=== PATIENT | female | born 2000 | race Caucasian/White ===

== ENCOUNTER 2024-12-08 08:14 | Emergency (ER) | payer BC ==
[2024-12-08 08:23] VITALS: TEMP 97.2
[2024-12-08] MEDS ORDERED: DUONEB 0.5-3 MG/3 ml Neb IH ONE (09:12)
[2024-12-08] MEDS: DUONEB 0.5-3 MG/3 ml Neb IH ONE (09:19)
[2024-12-08 09:30] LABS: Absolute Neutrophil Ct (ANC) 4.01 x10^3/uL (1.56-6.13); BASOPHIL % 0.4 % (0.1-1.2); Basophil (Absolute #) 0.02 x10^3/uL (0.01-0.08); Eosinophil % 2.7 % (0.7-5.8); Eosinophil (Absolute #) 0.15 x10^3/uL (0.04-0.36); Hematocrit 38.5 % (34.1-44.9); Hemoglobin 13.4 g/dL (11.2-15.7); IMMATURE GRAN # 0.01 x10^3u/L (0.001-0.031); IMMATURE GRAN % 0.2 % (0.001-0.429); Lymphocyte (Absolute #) 0.87 x10^3/uL (1.18-3.74); Lymphocytes % 15.6 % (19.3-51.7); Mean Corpuscular Hemoglobin 31.3 pg (25.6-32.2); Mean Corpuscular Hgb Concent. 34.8 g/dL (32.2-35.5); Mean Platelet Volume 9.9 fL (9.4-12.3); Monocyte (Absolute #) 0.51 x10^3/uL (0.24-0.86); Monocytes % 9.2 % (4.7-12.5); Neutrophil % 71.9 % (34.0-71.1); Platelet Count 208 x10^3/uL (182-369); Red Blood Count 4.28 x10^6/uL (3.93-5.22); Red Cell Distribution Width 11.6 % (11.7-14.4); White Blood Count 5.6 x10^3/uL (3.98-10.04)
[2024-12-08 09:48] LABS: HCG SERUM TEST NEGATIVE (NEGATIVE)
[2024-12-08 09:51] LABS: ALBUMIN 4.1 g/dL (3.5-5.0); ANION GAP 10.5 MEQ/L (5-15); BILIRUBIN,TOTAL 0.4 mg/dL (0.2-1.3); Creatinine 1 0.69 mg/dL (0.52-1.04); EST GLOMERULAR FILTRATION RATE 124.2 ML/MIN; Total Protein 6.6 g/dL (6.3-8.2)
[2024-12-08 11:08] VITALS: RESP 17; O2SAT 99
--- NOTE | 2024-12-08 11:51 | XRAY ---
Indication: Elevated d-dimer. Multiple contiguous axial images obtained through the chest using 80 cc Isovue 370 contrast and PE protocol. Comparison: None Good opacification pulmonary arteries to include the lobar and segmental branches. No pulmonary embolus. Heart not enlarged. Aorta is normal in course and caliber. No pathologic mediastinal/hilar lymphadenopathy. Lungs demonstrates medial right middle lobe atelectasis and minimal left lung base dependent atelectasis. Remaining lungs inflated and clear. Bony thorax intact. Limited upper abdomen including adrenal glands are unremarkable. Impression: Negative pulmonary embolus. Right middle lobe segmental atelectasis. No acute cardiopulmonary abnormalities.
[2024-12-08 12:06] VITALS: BP 120/74; PULSE 93
--- NOTE | 2024-12-08 12:06 | ERPHSYRPT ---
- History of Present Illness Time Seen by Provider: 12/08/24 08:29 Source: patient Exam Limitations: no limitations Patient Subjective Stated Complaint: Pt states "I went to [facility] on thursday for similar thing and they did chest x ray, ecg and all the stuff and didnt find anything but this morning when I was coughing, I had some red in my sputum and I got nervous." Triage Nursing Assessment: Pt presented alert and oriented X 3, skin pwd. Pt ambulates with an upright steady gait, albe to speak in clear full sentences. Pt resting comfortably on the bed in no apparent distress. Physician History: 24-year-old female presented in the ER with complains of hemoptysis. Patient reports she has been having off-and-on cough for the last 3 to 4 days and has been evaluated at [facility] ER where all the workup was negative. This morning she woke up, was coughing and noticed some blood bright red. Does report hurts to take a deep breath and feels a little short of breath with activity. No fever or chills reported. No known sick contact. No history of DVT/PE. Not taking any control pills. Allergies/Adverse Reactions: lisdexamfetamine [From Vyvanse] Allergy (Intermediate, Verified 12/08/24 08:23) lightheaded/vomit Hx Tetanus, Diphtheria Vaccination/Date Given: Yes Hx Influenza Vaccination/Date Given: No Hx Pneumococcal Vaccination/Date Given: No Travel Risk - International Travel Have you traveled outside of the country in past 3 weeks: No - Emerging Infectious Disease Are you exhibiting symptoms associated with any current EIDs: Yes Symptoms: Cough: New Onset - Review of Systems Constitutional: Fatigue Eyes: No Symptoms Ears, Nose, & Throat: No Symptoms Respiratory: Cough, Dyspnea Cardiac: Chest Pain Genitourinary Symptoms: No Symptoms Skin: No Symptoms Neurological: No Symptoms Hematologic/Lymphatic: No Symptoms Immunological/Allergic: No Symptoms - Past Medical History Pertinent Past Medical History: No - Past Surgical History Past Surgical History: Yes Other Surgical History: wisdom teeth - Female History Hx Last Menstrual Period: 11/18/2025 Hx Now: No - Social History Smoking Status: Never smoker Exposure to second hand smoke: No Drug Use: marijuana Patient Lives Alone: No - Social Determinants of Health Will the patient participate in the screening: Yes Do you worry about a steady place to live?: No Do you have any problems with any of the following?: No known problems In the past 12 months,have you had to go without utilities?: No Transportation Issues: No Has anyone in your support network made you feel unsafe?: No Have you or anyone in your house had to go without enough: No - Nursing Vital Signs Nursing Vital Signs: Initial Vital Signs Temperature 97.2 F 12/08/24 08:17 Pulse Rate 103 H 12/08/24 08:17 Respiratory Rate 18 12/08/24 08:17 Blood Pressure 137/97 12/08/24 08:17 O2 Sat by Pulse Oximetry 100 12/08/24 08:17 Pain Scale Pain Intensity 0 - Physical Exam General Appearance: no apparent distress Eye Exam: PERRL/EOMI Ears, Nose, Throat Exam: hearing grossly normal Neck Exam: normal inspection, non-tender, supple, full range of motion Respiratory Exam: normal breath sounds, lungs clear Cardiovascular/Chest Exam: normal heart sounds, regular rate/rhythm Abdominal/Gastrointestinal Exam: soft, normal bowel sounds, No tenderness Extremity Exam: non-tender, normal range of motion Neurologic Exam: alert, oriented x 3, cooperative, box maker wood II-XII nml as tested Skin Exam: normal color SpO2 Interpretation: normal SpO2: 99 O2 Delivery: Room Air Ordered Tests: Active Orders 24 hr Category Date Time Status CHEST WITH CONTRAST [CT] Stat Exams 12/08/24 10:12 Completed CBC W DIFF Stat Lab 12/08/24 09:29 Completed CMP Stat Lab 12/08/24 09:29 Completed D-DIMER QUANTITATIVE Stat Lab 12/08/24 09:29 Completed HCG QUALITATIVE, SERUM Stat Lab 12/08/24 09:29 Completed Lactic Acid Stat Lab 12/08/24 09:30 Completed TROPONIN Q4H Lab 12/08/24 09:29 Completed Respiratory Therapy Assessment DAILY RT 12/08/24 09:25 Completed Medication Summary Discontinued Medications Generic Name Dose Route Start Last Admin Trade Name Freq PRN Reason Stop Dose Admin Albuterol/Ipratropium 3 ml 12/08/24 09:07 12/08/24 09:19 Ipratropium/Albuterol Sulfate 3 Ml Ampul.Neb IH 12/08/24 09:08 3 ml STAT ONE Administration Albuterol/Ipratropium Confirm 12/08/24 09:12 Ipratropium/Albuterol Sulfate 3 Ml Ampul.Neb Administered 12/08/24 09:13 Dose 3 ml IH .STK-MED ONE Lab/Rad Data: Laboratory Result Diagrams 12/08/24 09:29 12/08/24 09:29 Laboratory Results 12/08/24 12/08/24 12/08/24 Range/Units 09:30 09:29 09:29 WBC (3.98-10.04) x10^3/uL RBC (3.93-5.22) x10^6/uL Hgb (11.2-15.7) g/dL Hct (34.1-44.9) % MCV (79.4-94.8) fL MCH (25.6-32.2) pg MCHC (32.2-35.5) g/dL RDW (11.7-14.4) % Plt Count (182-369) x10^3/uL MPV (9.4-12.3) fL Gran % (34.0-71.1) % Immature Gran % (Auto) (0.001-0.429) % Nucleat RBC Rel Count (0.00-0.2) % Eos # (Auto) (0.04-0.36) x10^3/uL Immature Gran # (Auto) (0.001-0.031) x10^3u/L Absolute Lymphs (auto) (1.18-3.74) x10^3/uL Absolute Monos (auto) (0.24-0.86) x10^3/uL Absolute Nucleated RBC (0.00-0.012) x10^3u/L Lymphocytes % (19.3-51.7) % Monocytes % (4.7-12.5) % Eosinophils % (0.7-5.8) % Basophils % (0.1-1.2) % Absolute Granulocytes (1.56-6.13) x10^3/uL Basophils # (0.01-0.08) x10^3/uL D-Dimer (0.0-0.50) mg/L Sodium (135-145) mmol/L Potassium (3.5-5.1) mmol/L Chloride (98-107) mmol/L Carbon Dioxide (22-30) mmol/L Anion Gap (5-15) MEQ/L BUN (7-17) mg/dL Creatinine (0.52-1.04) mg/dL Estimated GFR ML/MIN Glucose (74-106) mg/dL Lactic Acid 0.7 (0.4-2.0) Calcium (8.4-10.2) mg/dL Total Bilirubin (0.2-1.3) mg/dL AST (14-36) U/L ALT (0-35) U/L Alkaline Phosphatase (38-126) U/L Troponin I < 0.012 (0.000-0.033) ng/mL Serum Total Protein (6.3-8.2) g/dL Albumin (3.5-5.0) g/dL Serum HCG, Qual NEGATIVE (NEGATIVE) 12/08/24 12/08/24 12/08/24 Range/Units 09:29 09:29 09:29 WBC 5.6 (3.98-10.04) x10^3/uL RBC 4.28 (3.93-5.22) x10^6/uL Hgb 13.4 (11.2-15.7) g/dL Hct 38.5 (34.1-44.9) % MCV 90.0 (79.4-94.8) fL MCH 31.3 (25.6-32.2) pg MCHC 34.8 (32.2-35.5) g/dL RDW 11.6 L (11.7-14.4) % Plt Count 208 (182-369) x10^3/uL MPV 9.9 (9.4-12.3) fL Gran % 71.9 H (34.0-71.1) % Immature Gran % (Auto) 0.2 (0.001-0.429) % Nucleat RBC Rel Count 0.0 (0.00-0.2) % Eos # (Auto) 0.15 (0.04-0.36) x10^3/uL Immature Gran # (Auto) 0.01 (0.001-0.031) x10^3u/L Absolute Lymphs (auto) 0.87 L (1.18-3.74) x10^3/uL Absolute Monos (auto) 0.51 (0.24-0.86) x10^3/uL Absolute Nucleated RBC 0.00 (0.00-0.012) x10^3u/L Lymphocytes % 15.6 L (19.3-51.7) % Monocytes % 9.2 (4.7-12.5) % Eosinophils % 2.7 (0.7-5.8) % Basophils % 0.4 (0.1-1.2) % Absolute Granulocytes 4.01 (1.56-6.13) x10^3/uL Basophils # 0.02 (0.01-0.08) x10^3/uL D-Dimer 1.55 H* (0.0-0.50) mg/L Sodium 138 (135-145) mmol/L Potassium 4.0 (3.5-5.1) mmol/L Chloride 105 (98-107) mmol/L Carbon Dioxide 26 (22-30) mmol/L Anion Gap 10.5 (5-15) MEQ/L BUN 13 (7-17) mg/dL Creatinine 0.69 (0.52-1.04) mg/dL Estimated GFR 124.2 ML/MIN Glucose 80 (74-106) mg/dL Lactic Acid (0.4-2.0) Calcium 9.0 (8.4-10.2) mg/dL Total Bilirubin 0.40 (0.2-1.3) mg/dL AST 22 (14-36) U/L ALT 12 (0-35) U/L Alkaline Phosphatase 48 (38-126) U/L Troponin I (0.000-0.033) ng/mL Serum Total Protein 6.6 (6.3-8.2) g/dL Albumin 4.1 (3.5-5.0) g/dL Serum HCG, Qual (NEGATIVE) - Progress Progress: improved, re-examined Air Movement: good Progress Note: 12/08/24 12:04 24-year-old is evaluated in the ER for cough with hemoptysis shortness of breath. Given breathing treatment, feeling better on reevaluation. Was mildly tachycardic and have obtained D-dimer which were positive and is CTA is obtained which is negative for PE or any other acute cardiopulmonary findings. Normal white count, fairly unremarkable chemistries. I believe patient has bronchitis causing some shedding of bronchioles tiny capillary vessels causing bleeding because of hard coughing, started on Zithromax and given albuterol to use as needed manage continue with cough med ications. Discussed signs symptoms of worsening needing return to ER which he seems understanding. Stable for discharge. 12/08/24 13:27 Blood Culture(s) Obtained: No Antibiotics given: Yes Counseled pt/family regarding: diagnosis, need for follow-up, rad results Medical Desision Making - Risk of complications The pt has a mod risk of morbidity or mortality based on: Need for prescription drug management - Departure Departure Disposition: Home Clinical Impression: Acute bronchitis Condition: Stable Critical Care Time: No Referrals: MILAGRO MENDOZA NP [Primary Care Provider] - Follow up with PCP 1 day Instructions: Cough, Adult (DC) Additional Instructions: Continue with your cough medication. Follow-up with primary care for reevaluation. Take Tylenol as needed. Return to ER for worsening cough//increasing blood with sputum, worsening chest pain/difficulty breathing etc. Forms: Work/School Release Form Prescriptions: Albuterol Sulfate [Albuterol Sulfate Hfa] 8.5 gm IH Q6H PRN 14 Days #1 inh PRN Reason: Cough Azithromycin 250 mg [Zithromax 250 MG TABLET] 250 mg PO ZPACK #6 tablet
== END 2024-12-08 12:24 | disposition home or self-care (01) ==
LOC: ED 08:14
DX: J20.9 Acute bronchitis, unspecified (principal); R04.2 Hemoptysis; Z79.899 Other long term (current) drug therapy
CPT/HCPCS: 36415; 71260; 80053; 83605; 84484; 84703; 85025; 85379; 94640; 99284; 99285; A9270-GY